=== PATIENT | male | born 1950 | race Caucasian/White ===

== ENCOUNTER 2016-08-29 10:04 | Day surgery (SDC) | payer MEDICARE, BC ==
[~2016-08-29 10:04] MED LIST: Acetaminophen TAB* 325 MG PO PRN; Buffered Lidocaine 0.9% SYRIN* 5 ML/SYR SYRINGE INTRADERM ONE
[2016-08-29] MEDS ORDERED: fentaNYL* 50 MCG/ML 2 ML VIAL (100 MCG VIAL) ONE (11:04)
[2016-08-29] MEDS ORDERED: Midazolam* 1 MG/ML 2 ML VIAL (2 MG) ONE ×2 (11:04→11:29)
[2016-08-29 12:52] VITALS: BP 152/79
[2016-08-29] MEDS ORDERED: Tetracaine 0.5% OPTH.SOL 4 ML* 1 DROP BTL ONE (16:42)
[2016-08-29] MEDS ORDERED: Flurbiprofen 0.03% OPTH.SOL* 2.5 ML BTL ONE (16:42)
[2016-08-29] MEDS ORDERED: Neomycin/Polymy/Dex OPHTH.OIN* 3.5 GM ONE (16:42)
[2016-08-29] MEDS ORDERED: Lidocaine 1% MPF* 2 ML VIAL ONE (16:42)
[2016-08-29] MEDS ORDERED: acetaZOLAMIDE TAB* 250 MG ONE (16:42)
[2016-08-29] MEDS ORDERED: Buffered Lidocaine 0.9% SYRIN* 5 ML/SYR SYRINGE ONE (16:42)
[2016-08-29] MEDS ORDERED: Phenylephrine 2.5% OPTH.SOL* 2 ML BTL ONE (16:42)
[2016-08-29] MEDS ORDERED: Tropicamide 1% OPTH.SOL* BTL ONE (16:42)
[2016-08-29] MEDS ORDERED: Cyclopentolate 1% OPTH.SOL* 2 ML BTL ONE (16:42)
[2016-08-29] MEDS ORDERED: Povidone Iodine 5% OPTH* 30 ML BTL ONE (16:42)
--- NOTE | 2016-08-30 04:41 | OP ---
DATE OF OPERATION: 08/29/16 - [facility] DATE OF : 46 SURGEON: Dwight Enrique MD ANESTHESIOLOGIST: Lopez Calderon MD ANESTHESIA: Monitored anesthesia care. PRE-OP DIAGNOSIS: Cataract of the right eye. POST-OP DIAGNOSIS: Cataract of the right eye. OPERATIVE PROCEDURE: Cataract extraction of the right eye. IMPLANT: SN60WF 21.0-diopter lens to the right eye. COMPLICATIONS: None. DESCRIPTION OF PROCEDURE: The patient was given phenylephrine 2.5% and cyclopentolate 1% eye drops to the operative eye in the preoperative area. The patient was brought to the operating room where a time-out was taken to identify the correct patient, site, and side of surgery. The patient's right eye was prepped and draped in the usual sterile fashion with 5% Betadine. A second time-out was taken to verify the correct patient, site, and side of surgery, and correct lens selection. A lid speculum was placed to the right eye. A 1-mm paracentesis blade was used to make a clear corneal incision in the superotemporal position. Preservative-free 1% lidocaine was injected into the anterior chamber. DisCoVisc was then injected into the anterior chamber. A 2.75 mm keratome blade was used to make a triplanar incision at the inferotemporal position. A cystotome was used to initiate a capsulorrhexis which was completed with Utrata forceps in a continuous and curvilinear manner. Hydrodissection of the lens was performed with BSS on a cannula. The lens could be spun in the capsular bag. The phacoemulsification handpiece was used with a [id number]-lorbdvu technique to remove the nucleus in its entirety with 30.30 CDE. The I/A handpiece then removed the residual cortical lens material. DisCoVisc was injected to inflate the capsular bag. The planned SN60WF 21.0- diopter lens was injected into the capsular bag. The residual DisCoVisc was removed from the eye with a I/A handpiece. The corneal incisions were hydrated and no leaks occurred at physiologic pressure around 20 mmHg per palpation. The lid speculum was removed and drapes removed. Maxitrol ointment was placed to the surface of the operative eye. An adhesive patch and shield were placed on the operative eye. The patient was taken to the postoperative area in stable condition. [id number]/[facility] #: [id number] MTDD
== END 2016-08-29 12:12 | disposition home or self-care (01) ==
LOC: OREAST 10:04
PROVIDERS: ATTEND Student in an Organized Health Care Education/Training Program
PROC: 08RJ3JZ Replacement of Right Lens with Synthetic Substitute, Percutaneous Approach (ICD-10-PCS; principal; 2016-08-29 11:30)
DX: H25.11 Age-related nuclear cataract, right eye (principal); Z85.528 Personal history of other malignant neoplasm of kidney; H35.3130 Nonexudative age-related macular degeneration, bilateral, stage unspecified
CPT/HCPCS: A9270-GY; J2250; J3010; V2632